=== PATIENT | female | born 1990 | race Caucasian/White ===

== ENCOUNTER 2023-09-19 13:11 | Emergency (ER) | payer BC, OTHER ==
[2023-09-19 13:35] VITALS: BP 116/70; PULSE 77; RESP 18; TEMP 97.2; O2SAT 96
--- NOTE | 2023-09-19 13:44 | ERPHSYRPT ---
- History of Present Illness Source: patient Exam Limitations: no limitations Patient Subjective Stated Complaint: pt here for fall down approx 3 stairs at home, she states she twisted her right ankle Triage Nursing Assessment: pt alert, resp easy, arrived per wc, skin w/d/p. has swelling and tenderness to right ankle. Physician History: 33-year-old female fell down several steps at her house injuring her right ankle. Pain is 6 out of 10 and worse with weight bearing. She denies any other injuries at this time. Patient states she simply missed a step and fell. Patient took Motrin before coming to ER and refused any pain meds at this time. Method of Injury: fell Occurred: just prior to arrival Quality: constant Severity of Pain-Max: moderate Severity of Pain-Current: moderate Lower Extremities Pain: ankle: right Modifying Factors: Improves With: movement Associated Symptoms: popping sensation Allergies/Adverse Reactions: No Known Drug Allergies Allergy (Verified 09/19/23 13:20) Hx Tetanus, Diphtheria Vaccination/Date Given: No Hx Influenza Vaccination/Date Given: No Hx Pneumococcal Vaccination/Date Given: No Immunizations Up to Date: Yes Travel Risk - International Travel Have you traveled outside of the country in past 3 weeks: No - Vaccine Status Have you recieved a Covid-19 vaccination: Yes Field Professional: Unknown - Vaccination Dates Date of 2cond Vaccination (if applicable): 2020 Dates if Unknown: ? - Review of Systems Constitutional: No Symptoms Eyes: No Symptoms Ears, Nose, & Throat: No Symptoms Respiratory: No Symptoms Cardiac: No Symptoms Abdominal/Gastrointestinal: No Symptoms Genitourinary Symptoms: No Symptoms Skin: No Symptoms Neurological: No Symptoms Psychological: No Symptoms Endocrine: No Symptoms Hematologic/Lymphatic: No Symptoms Immunological/Allergic: No Symptoms - Past Medical History Pertinent Past Medical History: Yes Neurological History: Other ENT History: No Pertinent History Cardiac History: Hypertension Respiratory History: No Pertinent History Endocrine Medical History: No Pertinent History Musculoskeletal History: No Pertinent History GI Medical History: GERD History: No Pertinent History Psycho-Social History: Anxiety, Depression Female Reproductive Disorders: Other Other Medical History: dysplasia of cervix - Past Surgical History Past Surgical History: Yes Neuro Surgical History: No Pertinent History Cardiac: No Pertinent History Respiratory: No Pertinent History Gastrointestinal: No Pertinent History Genitourinary: No Pertinent History Musculoskeletal: Orthopedic Surgery Female Surgical History: No Pertinent History Other Surgical History: lisy foot and R knee - Social History Smoking Status: Never smoker Exposure to second hand smoke: No Drug Use: none Patient Lives Alone: No - Female History Hx Last Menstrual Period: sep 16 Hx Now: No - Nursing Vital Signs Nursing Vital Signs: Initial Vital Signs Temperature 97.2 F 09/19/23 13:34 Pulse Rate 77 09/19/23 13:34 Respiratory Rate 18 09/19/23 13:34 Blood Pressure 116/70 09/19/23 13:34 O2 Sat by Pulse Oximetry 96 09/19/23 13:34 Pain Scale Pain Intensity 6 Within normal limits - Physical Exam General Appearance: no apparent distress Eyes, Ears, Nose, Throat Exam: normal ENT inspection, TMs normal, pharynx normal, moist mucous membranes Neck Exam: normal inspection, non-tender, supple, full range of motion, No Brudzinski, No Kernig's, No meningismus Cardiovascular/Respiratory Exam: normal breath sounds, regular rate/rhythm, heart sounds normal Gastrointestinal/Abdominal Exam: non-tender, soft Back Exam: normal inspection, normal range of motion, No vertebral tenderness (No T or L-spine tenderness palpation) Hips Exam: bilateral: non-tender, normal inspection, normal range of motion, no evidence of injury Legs Exam: bilateral leg: non-tender, normal inspection, normal range of motion, no evidence of injury Knees Exam: bilateral knee: non-tender, normal inspection, normal range of motion, no evidence of injury Ankle Exam: right ankle: pain (Right ankle with moderate edema laterally and mild edema medially tenderness to palpation laterally, and also anteriorly, pain with inversion, good pedal pulse, distal sensation, and capillary return.) Foot Exam: bilateral foot: non-tender, normal inspection, normal range of motion, no evidence of injury Neuro/Tendon Exam: normal sensation, normal motor functions, normal tendon functions, responds to pain, no evidence tendon injury, No motor deficit, No sensory deficit Mental Status Exam: alert, oriented x 3, cooperative Skin Exam: normal color, warm, dry, No rash SpO2 Interpretation: normal SpO2: 96 O2 Delivery: Room Air - Course Nursing assessment & vital signs reviewed: Yes - Radiology Exams Ankle X-ray Interpretation: Reviewed by me (Right ankle soft tissue swelling.) Ordered Tests: Active Orders 24 hr Category Date Time Status Rob Bandage Application -[facility] STAT Care 09/19/23 13:50 Completed Crutches STAT Care 09/19/23 13:52 Completed Splint STAT Care 09/19/23 13:51 Completed ANKLE (3 VIEWS) Stat Exams 09/19/23 13:24 Completed - Progress Progress: improved Progress Note: 09/19/23 14:48 Nursing note and vital signs reviewed. No food or housing insecurity noted. Patient refused pain meds during her entire ER stay. X-ray result reviewed and shared with patient. Rob wrap and Aircast applied to right lower extremity per nursing/neurovascular intact. Crutches and teaching also done per nursing. 800 mg p.o. Motrin prescribed at patient's request. Patient advised to follow-up with PCP orthopedic clinic as needed. Weight bearing as tolerated with ice for 24 to 4 hours was also recommended. Additional history per , and patient discharged in care of . Counseled pt/family regarding: diagnosis, need for follow-up, rad results Medical Desision Making - Independent Historian Additional History obtained from: Spouse - Diagnostic Testing Radiological Interpretation: Reviewed by me - Risk of complications The pt has a mod risk of morbidity or mortality based on: Need for prescription drug management - Departure Departure Disposition: Home Clinical Impression: Right ankle sprain Condition: Stable Critical Care Time: No Referrals: JOCELYNE MOCTEZUMA HERD TESTER [Primary Care Provider] - Follow up/PCP as directed Instructions: Ankle Sprain ED Additional Instructions: Ice for 12 to 24 hours. Motrin/Tylenol for pain. Weightbearing as tolerated. Rob wrap and Aircast for 3 to 4 days. Follow-up with your family MD or the orthopedic clinic. Return to ER as needed. Prescriptions: Ibuprofen 800 mg PO TID PRN PRN #20 tablet PRN Reason: Pain
--- NOTE | 2023-09-19 13:47 | XRAY ---
Indication: Pain following trauma. Comparison: None 3 view right ankle demonstrates mild lateral soft tissue swelling. No other bony, articular, or soft tissue abnormalities.
== END 2023-09-19 14:12 | disposition home or self-care (01) ==
LOC: ED 13:11
DX: S93.401A Sprain of unspecified ligament of right ankle, initial encounter (principal); W10.9XXA Fall (on) (from) unspecified stairs and steps, initial encounter; I10 Essential (primary) hypertension
CPT/HCPCS: 73610; 99283